=== PATIENT | male | born 1990 | race Caucasian/White ===

== ENCOUNTER 2017-05-13 11:09 | Outpatient (CLI) | payer OTHER | END 2017-05-13 11:10 | disposition home or self-care (01) | LOC: SC 11:09 | PROVIDERS: ATTEND Internal Medicine Pulmonary Disease | DX: G47.30 Sleep apnea, unspecified (principal); G47.8 Other sleep disorders; G47.10 Hypersomnia, unspecified; G25.81 Restless legs syndrome; R06.83 Snoring | CPT/HCPCS: 99203; 99212 ==

== ENCOUNTER 2017-06-07 21:41 | Outpatient (CLI) | payer OTHER | END 2017-06-07 21:42 | disposition home or self-care (01) | LOC: SC 21:41 | PROVIDERS: ATTEND Internal Medicine Pulmonary Disease | DX: G47.9 Sleep disorder, unspecified (principal) | CPT/HCPCS: 95810 ==

== ENCOUNTER 2017-07-09 09:10 | Outpatient (CLI) | payer OTHER | END 2017-07-09 09:11 | disposition home or self-care (01) | LOC: SC 09:10 | PROVIDERS: ATTEND Nurse Practitioner Family | DX: R53.83 Other fatigue (principal); R06.83 Snoring; G47.10 Hypersomnia, unspecified; G25.81 Restless legs syndrome | CPT/HCPCS: 99212; 99214 ==